=== PATIENT | male | born 1975 | race Hispanic/Latino ===

== ENCOUNTER 2017-12-29 09:00 | Emergency (ER) | payer OTHER ==
[~2017-12-29] VITALS: Ht 170.2 cm; Wt 106.6 kg
[2017-12-29] MEDS ORDERED: SILVER SULFADIAZINE 50GM CREAM TOP STA (09:23)
[2017-12-29] MEDS ORDERED: TETANUS/DIPHTHERIA TOX ADULT 0.5 ML SYR IM ONE (09:30)
[2017-12-29 10:24] VITALS: BP 113/74
== END 2017-12-29 10:35 | disposition home or self-care (01) ==
LOC: ER 09:00
DX: S70.311A Abrasion, right thigh, initial encounter (principal); W22.8XXA Striking against or struck by other objects, initial encounter; Y93.89 Activity, other specified; Y92.008 Other place in unspecified non-institutional (private) residence as the place of occurrence of the external cause
CPT/HCPCS: 90471; 90714; 99283

== ENCOUNTER 2018-05-18 12:32 | Observation (INO) | payer OTHER ==
[~2018-05-18] VITALS: Ht 170.2 cm; Wt 103.9 kg
[2018-05-18] MEDS ORDERED: SODIUM CHLORIDE 0.9% 1000ML 1,000 ML IV STA (12:44)
[2018-05-18] MEDS ORDERED: ALTEPLASE 50 MG/VIAL (29 MILLION IU) IV ONE (12:45)
[2018-05-18] MEDS ORDERED: INSULIN REGULAR, HUMAN 100 UNIT/1 ML 3ML VIAL IV ONE (12:45)
[2018-05-18 12:58] LABS: BASOPHILS % 0.3 % (0.0-1.0); EOSINOPHILS # (AUTO) 0.1 (0.0-0.4); EOSINOPHILS % 1.3 % (0.0-6.0); HEMATOCRIT 46.8 % (38.2-49.6); HEMOGLOBIN 16.6 g/dL (14.0-18.0); LYMPHOCYTES % 34.5 % (18.0-39.1); MEAN CORPUSCULAR HEMOGLOBIN 30.6 pg (28-32); MEAN CORPUSCULAR HGB CONC 35.5 g/dL (31-35); MEAN CORPUSCULAR VOLUME 86.3 fL (81-99); MONOCYTES # (AUTO) 0.7 (0.2-0.8); MONOCYTES % 8.4 % (4.4-11.3); NEUTROPHILS # (AUTO) 4.7 (2.1-6.9); NEUTROPHILS % 55.2 % (38.7-80.0); PLATELET COUNT 283 x10e3/uL (140-360); RED BLOOD COUNT 5.42 x10e6/uL (4.3-5.7); RED CELL DISTRIBUTION WIDTH 12.9 % (11.7-14.4)
--- NOTE | 2018-05-18 13:05 | Diagnostic Imaging Report ---
Exam: Head CT without contrast History: Stroke symptoms, dizziness, facial numbness Comparison studies: None Technique: Axial images were obtained from the skull base to the vertex. Coronal and sagittal images reconstructed from the axial data. Intravenous contrast: None Findings: Scalp: No abnormalities. Bones: No fractures, blastic or lytic lesions. Brain sulci: Appropriate for age. Ventricles: Normal in size and configuration. No hydrocephalus. Extra-axial spaces: No masses, no fluid collection. Parenchyma: No abnormal densities. No masses, acute hemorrhage, acute or chronic vascular insults. Sellar/suprasellar region: No abnormalities. Craniocervical junction: Patent foramen magnum. No Chiari one malformation. IMPRESSION: 1. No intracranial abnormalities. 2. Specifically, no mass, acute hemorrhage or acute cortical vascular insults. Signed by: Dr. Omega Simeon M.D. on 05/18/2018 1:02 PM
[2018-05-18 13:07] LABS: PROTHROMBIN TIME 12.4 seconds (11.9-14.5)
[2018-05-18 13:08] LABS: PARTIAL THROMBOPLASTIN TIME 26.7 seconds (23.8-35.5)
[2018-05-18 13:17] LABS: ALANINE AMINOTRANSFERASE 125 IU/L (0-55); ALBUMIN 4.1 g/dL (3.5-5.0); ALBUMIN/GLOBULIN RATIO 1.1 (0.8-2.0); ALKALINE PHOSPHATASE 104 IU/L (40-150); BLOOD UREA NITROGEN 13 mg/dL (7-26); BUN/CREATININE RATIO 13 (6-25); CALCIUM 9.7 mg/dL (8.4-10.2); CARBON DIOXIDE 25 mmol/L (22-29); CHLORIDE 98 mmol/L (98-107); CREATINE KINASE 107 IU/L (30-200); CREATININE, SERUM 1.01 mg/dL (0.72-1.25); EST GLOMERULAR FILTRATION RATE > 60 ML/MIN (60-); SODIUM 135 mmol/L (136-145)
[2018-05-18 13:19] LABS: GLUCOSE 462 mg/dL (74-118)
[2018-05-18] MEDS ORDERED: SODIUM CHLORIDE 0.45% 1,000 ML IV SCH (13:38)
[2018-05-18] MEDS ORDERED: ENALAPRILAT IV INJ 1.25 MG/ML VIAL IV PRN (13:45)
[2018-05-18] MEDS ORDERED: ONDANSETRON HCL INJ 2 MG/ML VIAL IV PRN (13:45)
[2018-05-18] MEDS ORDERED: DEXTROSE 50% SYRINGE 50 ML IV PRN (13:45)
[2018-05-18] MEDS ORDERED: ACETAMINOPHEN 325 MG TAB PO PRN (13:45)
[2018-05-18] MEDS ORDERED: ZOLPIDEM TARTRATE 5 MG TAB PO PRN (13:45)
[2018-05-18] MEDS ORDERED: IBUPROFEN 200 MG TAB PO PRN (13:45)
[2018-05-18 13:53] LABS: CLARITY,URINE CLEAR (CLEAR); COLOR,URINE YELLOW (YELLOW); KETONES,URINE NEGATIVE (NEGATIVE); LEUKOCYTE ESTERASE ,URINE NEGATIVE (NEGATIVE); NITRITE,URINE NEGATIVE (NEGATIVE); PROTEIN,URINE DIPSTICK NEGATIVE (NEGATIVE)
[2018-05-18 13:54] LABS: AMPHETAMINES SCREEN,URINE NEGATIVE (NEGATIVE); BENZODIAZEPINES SCREEN,URINE NEGATIVE (NEGATIVE); BILIRUBIN,URINE NEGATIVE (NEGATIVE); PHENCYCLIDINE SCREEN,URINE NEGATIVE (NEGATIVE); URINE UROBILINOGEN 0.2 mg/dL (0.2 - 1)
[2018-05-18 13:59] LABS: BACTERIA,URINE FEW /HPF; EPITHELIAL CELLS,URINE FEW /LPF; RBC,URINE 0-5 /HPF (0-5); WBC,URINE (MAN) 0-5 /HPF (0-5)
[2018-05-18 14:20] VITALS: BP 128/81
[2018-05-18] MEDS ORDERED: IBUPROFEN 400 MG TAB PO PRN (16:00)
--- NOTE | 2018-05-18 16:08 | Diagnostic Imaging Report ---
Exam: Brain MRI without IV contrast History: Dizziness, facial numbness Comparison studies: Head CT of the same date, 05/18/2018 Technique: Sagittal and axial T2 FS, axial DWI, axial T2*GRE, axial T1 FLAIR and axial coronal T2 FLAIR. Intravenous contrast: None Findings: Scalp: Normal in signal. No masses. Bone marrow: Normal in signal intensity. Brain sulci: Appropriate for age. Ventricles: Normal in size. No hydrocephalus. Extra axial spaces: No mass, no fluid collection. Parenchyma: No mass, hemorrhage or acute ischemia. A single punctate T2 FLAIR hyperintense focus along the right precentral subcortical white matter is nonspecific but may reflect minimal chronic microvascular ischemic changes or focal nonspecific gliosis. This finding is beyond resolution of CT. Suprasellar region: No abnormalities. Craniocervical junction: Patent foramen magnum. No Chiari malformation. Vessels: Normal flow-voids in the arteries and sinuses. IMPRESSION: 1. No acute ischemia or other acute intracranial abnormalities. 2. Single nonspecific right precentral punctate focal signal abnormality, possibly minimal chronic microvascular ischemic changes other nonspecific focal gliosis. Signed by: Dr. Omega Simeon M.D. on 05/18/2018 4:05 PM
[2018-05-18 16:12] VITALS: BP 128/81
[2018-05-18 16:30] VITALS: BP 123/79
[2018-05-18] MEDS ORDERED: CLONIDINE HCL 0.2 MG TAB PO PRN (16:45)
[2018-05-18] MEDS ORDERED: ASPIRIN 81 MG CHEW TAB PO ONE (16:45)
[2018-05-18] MEDS: INSULIN REGULAR, HUMAN 100 UNIT/1 ML 3ML VIAL SQ SCH ×2 (17:22→22:08)
[2018-05-18] MEDS: INSULIN DETEMIR 100 UNIT/ML PEN SQ SCH (17:22)
[2018-05-18 18:14] LABS: FERRITIN 387.13 ng/mL (21.81-274.66)
--- NOTE | 2018-05-18 18:16 | History and Physical ---
This is a 42-year-old male with past medical history according to him only positive for borderline diabetes. He apparently started having double vision, feeling extremely weak and dizzy. He came to the emergency room. He was found to have very high blood sugar at 462. He was admitted to the hospital. CT of the head came back negative for stroke. REVIEW OF SYSTEMS CARDIOVASCULAR: No chest pain or palpitations. RESPIRATORY: No shortness of breath. No cough. GASTROINTESTINAL: No nausea, vomiting or diarrhea. GENITOURINARY: He has frequency but no dysuria. NEUROLOGIC: He has dizziness and double vision. No weakness of the arms or legs. PAST MEDICAL HISTORY: Diabetes mellitus, type 2, diet controlled. SOCIAL HISTORY: He does not smoke. He does not drink alcohol. He does not do recreational drugs. PHYSICAL EXAMINATION HEART: Regular rhythm. Normal S1, S2 sounds. LUNGS: Clear bilaterally. ABDOMEN: Soft. EXTREMITIES: No evidence of cyanosis, edema or trauma. NEUROLOGIC: Alert and oriented x3. No motor or sensory deficits. Cranial nerves within normal limits. LABS: On the BMP, sodium 135, potassium 4.0, chloride 98. CO2 25. BUN 13, creatinine 1.01. Glucose 462. CBC showed white blood count 8.58, hemoglobin 16.6, hematocrit 46.8, platelet count 250,000. PT 12.4, INR 1.00, PTT 26.7. AST 63, ALT 125, total bilirubin 1.1, alkaline phosphatase 104. CT of head showed no significant evidence of any stroke or bleed or anything like that. FINAL IMPRESSION 1. Slurred speech. 2. Uncontrolled diabetes mellitus, type 2, with polyneuropathy. 3. Elevated liver function tests. PLAN OF TREATMENT: We are going to start monitoring blood sugar a.c. and nightly. We are going to start Levemir 20 units at bedtime and 5 units before each meal. Diabetic diet. Diabetic teaching. We are going to start him on Lyrica 50 mg q.8 h. for the polyneuropathy. Neurology consult with Dr. Daniel. Carotid Doppler and echocardiogram have been ordered also. We are going to do a workup for the elevated LFTs including liver ultrasound, hepatitis profile, antinuclear antibodies, ceruloplasmin level, iron and ferritin. Job#: [id number]
[2018-05-18 19:20] VITALS: BP 121/74
[2018-05-18 19:56] VITALS: BP 121/74
[2018-05-18] MEDS: PREGABALIN 50 MG CAP PO SCH (22:08)
[2018-05-19] VITALS (9 sets, daily range): BP systolic 109–130; BP diastolic 60–82
--- NOTE | 2018-05-19 03:39 | History and Physical ---
ADDENDUM TO HISTORY AND PHYSICAL EKG was done, normal sinus rhythm, no evidence of any ST-segment elevation or depression. Carotid Doppler did not show any lesion. Preliminary report did not show areas of any carotid stenosis. Echocardiogram showed good ejection fraction of 60%-65% with no pericardial effusion. No evidence of any severe valvular abnormality either. CT of head was negative for stroke. So, most likely, symptoms are related to hyperosmolar state due to very high blood sugar. We are going to start lisinopril 10 mg daily for protection of kidney stress from the diabetic nephropathy and plus the blood pressure in the ER was very high. We are going to 0.2 mg p.o. twice a day as needed for hypertension, also 325 mg have been given to the patient. Patient cannot have lipid-lowering agents because of elevated LFTs. The workup for elevated LFTs including liver ultrasound, iron, TIBC, ferritin, ceruloplasmin level, antinuclear antibodies, and antimitochondrial antibodies, and hepatitis profile. We are going to repeat CMP tomorrow. We are going to also consult for endocrinology because of uncontrolled blood sugar and also, hemoglobin A1c has been ordered. Diabetic diet, 1800-calorie ADA diet, and also, Dr. Daniel, neurology will see the patient also because of episode of blurry vision, dysarthria , which are resolved. Job#: [id number] CQ
[2018-05-19 06:24] LABS: ALANINE AMINOTRANSFERASE 97 IU/L (0-55); ALBUMIN 3.5 g/dL (3.5-5.0); ALBUMIN/GLOBULIN RATIO 1.2 (0.8-2.0); ALKALINE PHOSPHATASE 73 IU/L (40-150); ANION GAP 11.6 mmol/L (8-16); BLOOD UREA NITROGEN 12 mg/dL (7-26); BUN/CREATININE RATIO 16 (6-25); CALCIUM 8.9 mg/dL (8.4-10.2); CARBON DIOXIDE 25 mmol/L (22-29); CHLORIDE 104 mmol/L (98-107); CREATININE, SERUM 0.73 mg/dL (0.72-1.25); EST GLOMERULAR FILTRATION RATE > 60 ML/MIN (60-); GLUCOSE 222 mg/dL (74-118); POTASSIUM 3.6 mmol/L (3.5-5.1); SODIUM 137 mmol/L (136-145)
[2018-05-19 06:53] LABS: CREATINE KINASE 80 IU/L (30-200)
[2018-05-19] MEDS: PREGABALIN 50 MG CAP PO SCH ×3 (08:39→20:50)
[2018-05-19] MEDS: LISINOPRIL 10 MG TAB PO SCH (08:39)
[2018-05-19] MEDS: ASPIRIN 325 MG TAB PO SCH (08:39)
[2018-05-19] MEDS: INSULIN DETEMIR 100 UNIT/ML PEN SQ SCH ×2 (08:41→16:30)
[2018-05-19] MEDS: INSULIN REGULAR, HUMAN 100 UNIT/1 ML 3ML VIAL SQ SCH ×2 (08:41→12:21)
[2018-05-19 10:43] LABS: CHOL/HDL RATIO 5.4 (3.9-4.7)
[2018-05-19 13:20] LABS: FREE T4 (FREE THYROXINE) 1.08 ng/dL (0.9-1.8); THYROID STIMULATING HORMONE 0.708 uIU/mL (0.350-4.940)
--- NOTE | 2018-05-19 14:23 | Progress Note ---
DATE: INTERNAL MEDICINE PROGRESS NOTE SUBJECTIVE: Patient is doing well. No significant complaint. PHYSICAL EXAM: VITAL SIGNS: Blood pressure 127/73. Temperature is 96.3. Heart rate 86 per minute. Respiratory rate 18 per minute. Oxygen 96%. HEART: Shows regular rhythm. Normal S1 and S2 sounds. LUNGS: Clear bilaterally. ABDOMEN: Soft. EXTREMITIES: Show no evidence of cyanosis, edema or trauma. BLOOD WORK: We have a BMP with a sodium 137, potassium 3.6, chloride 104, CO2 25, BUN 12, creatinine 0.73, glucose 222. On the CBC: White blood count 8.58, hemoglobin 16.6, hematocrit 46.8, platelet count 283,000. PT 12.4, INR 1.00, PTT 26.7. AST 45, ALT 97, total bilirubin is 1.1, alkaline phosphatase of 73. FINAL IMPRESSION: 1. Episode of dizziness most likely related to the hyperglycemia versus transient ischemic attack. 2. Uncontrolled diabetes mellitus type 2 with diabetic neuropathy. 3. Essential hypertension. 4. Obesity. PLAN OF TREATMENT: We are going to continue with the current insulin regimen. He is on Levemir 30 units twice a day and Humalog 16 units before meals. Continue monitoring blood sugar a.c. and nightly. Continue diabetic teaching. Aspirin 325 mg daily. Lovenox 40 mg subcutaneous daily for DVT prophylaxis. Lyrica 50 mg 3 times a day because of the diabetic neuropathy. Ibuprofen 400 mg q.6 h. as needed. Ambien 5 mg at night p.r.n. for sleep. Clonidine 0.2 mg twice a day as needed for hypertension. Pepcid 20 mg p.o. twice a day. Dr. Gaitan is on the case for endocrinology, Dr. Tatiana Daniel for neurology. Echocardiogram did not show any significant abnormalities according to the preliminary report as well as the carotid Doppler showed no significant carotid stenosis according to the flight technician preliminary report. Tomorrow Dr. Drummond will resume the care until discharge. Job#: [id number] EV
[2018-05-19] MEDS: INSULIN LISPRO 100 UNIT/1 ML 3ML VIAL SQ SCH ×3 (16:30→20:51)
[2018-05-19] MEDS: FAMOTIDINE 20 MG TAB PO SCH (16:30)
[2018-05-19] MEDS ORDERED: ENOXAPARIN SOD INJ 40 MG/0.4 ML SYR SC SCH (17:00)
--- NOTE | 2018-05-19 19:02 | Consultation ---
DATE OF CONSULTATION: May 18, 2018 ENDOCRINE CONSULTATION PATIENT OF: Dr. Barnard. Thank you very much for referring this patient. HISTORY OF PRESENT ILLNESS: This is a 42-year-old gentleman who is referred to me for evaluation of diabetes mellitus. Patient tells me that he was seen told that he has prediabetes about 3 years back and has been taking metformin off and on. He has been having a problem with the polyuria, polydipsia, and weight loss. He came to the emergency room with history of blurred vision and some weakness. Patient is being admitted in the hospital for further evaluation. Patient also was found to be hypertensive. He does not have any family history of diabetes according to the patient. At the time of admission, his blood sugar was 462 and anion gap was around 16. His hemoglobin A1c is 13.1. PHYSICAL EXAMINATION GENERAL: Today, the patient is alert, awake, a little bit apprehensive. He is moderately overweight. VITAL SIGNS: His heart rate is around 78, blood pressure is 132/82 mmHg. HEENT: Essentially unremarkable. Thyroid is palpable. Clinically, he is near euthyroid. CHEST: Bilateral vesicular breathing. He has mild bronchospasm. CARDIAC: There are 1st and 2nd heart sounds. There is no 3rd or 4th heart sound. Ejection sound grade 2/6. EXTREMITIES: Patient has evidence of diabetic sensory neuropathy in both lower extremities. CLINICAL IMPRESSION 1. Diabetes mellitus type 2, uncontrolled with complications. 2. Rule out cerebrovascular accident. 3. Rule out transient ischemic attack. 4. Hypertension. PLAN: The plan at this time is to start him on combination of Humalog and Lantus insulin. Patient needs extensive diabetic and dietary education. We will also do a lipid profile. Thanks again for referring this patient. I will be following this patient with you. Job#: [id number] MILI
[2018-05-20] VITALS (7 sets, daily range): BP systolic 103–118; BP diastolic 56–77
[2018-05-20] MEDS: INSULIN LISPRO 100 UNIT/1 ML 3ML VIAL SQ SCH ×4 (08:06→12:29)
[2018-05-20] MEDS: FAMOTIDINE 20 MG TAB PO SCH (08:06)
[2018-05-20] MEDS: INSULIN DETEMIR 100 UNIT/ML PEN SQ SCH (09:21)
[2018-05-20] MEDS: ASPIRIN 325 MG TAB PO SCH (09:21)
[2018-05-20] MEDS: LISINOPRIL 10 MG TAB PO SCH (09:21)
[2018-05-20] MEDS: PREGABALIN 50 MG CAP PO SCH (09:21)
--- NOTE | 2018-05-20 11:00 | Consultation ---
DATE OF CONSULTATION: May 19, 2018 NEUROLOGY CONSULT NOTE HISTORY OF PRESENT ILLNESS: Mr. Nye is a 42-year-old right hand dominant man with past medical history significant for prediabetes, admitted to [facility] on May 18, 2018 with multiple symptoms. At approximately 10:30 or 11 a.m. on the day of admission, the patient experienced the sudden onset of impairment of depth perception, numbness and tingling over the whole face, dysarthria, and mild expressive aphasia. Concerned regarding his symptoms, Mr. Nye called his and spoked to her for approximately 10 minutes. Both agree the patient should get something to eat to see if this would improve his symptoms. However, there was no improvement of his symptoms. Shortly after eating, in addition to the above symptoms, the patient noted dizziness which he further describes as a lightheaded sensation and mild impairment of gait with poor balance. Mr. Nye notified his of his persistent and worsening symptoms. She drove to his place of employment, then brought him to the emergency center at [facility] for further evaluation. Upon arrival in the emergency center, the patient was afebrile with a blood pressure of 150/97 mmHg and a pulse of 90 beats per minute. His neurological examination was documented as being nonfocal. A CT of the brain without contrast was performed and did not show evidence of recent large territorial ischemia or hemorrhage. While in the emergency center, routine blood work revealed a serum glucose of 462. Mr. Agudelo was admitted to [facility] under observation status for further evaluation and treatment of hyperglycemia and possible transient ischemic attack. Mr. Agudelo reports the symptoms described above gradually resolved over a period of several hours. At approximately 9 p.m., the patient was asymptomatic with the exception of a mild diffuse headache. REVIEW OF SYSTEMS: Visual impairment, dysarthria, mild expressive aphasia, numbness affecting the whole face, impairment of balance and gait, mild headache, dizziness further described as lightheadedness. Otherwise, the 12 point review of systems is negative. PAST MEDICAL HISTORY: Prediabetes diagnosed approximately 3 years ago, fatty liver. PAST SURGICAL HISTORY: Appendectomy, cholecystectomy, left rotator cuff repair. PAST HOSPITALIZATIONS: Surgeries/procedures as listed. FAMILY HISTORY: The patient's paternal and maternal grandparents are . Their medical histories are unknown. Mr. Nye's father is alive, but his medical history is unknown. Mr. Nye is estranged from his father and several relatives on his father's side of the family. The patient's mother is alive. She has gastroesophageal reflux disease and headaches. One brother is alive, but overweight. A second brother is alive. His medical history is unknown. Mr. Nye has 2 other brothers, but he is estranged from them at present. Mr. Nye has 4 children, 3 boys and 1 girl. All are alive. His boys are healthy. His daughter has alopecia. SOCIAL HISTORY: Patient is . He has his GED. 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 The patient endorses a history of tobacco use. He previously smoked 1/2 pack per day for approximately 20 years. He quit smoking cigarettes approximately one year ago. Mr. Nye endorses occasional alcohol use. He does not report current or prior recreational drug use. HOME MEDICATIONS: None. ALLERGIES: NO KNOWN DRUG ALLERGIES. NO KNOWN FOOD ALLERGIES. NO KNOWN ALLERGIES TO LATEX. NO KNOWN ALLERGIES TO IODINE OR OTHER CONTRAST MATERIALS. PHYSICAL EXAMINATION VITAL SIGNS: Height 67 inches, weight 230 pounds, BMI 36.0 kg per meter squared. Blood pressure 130/82 mmHg, pulse 72 beats per minute, respiratory rate 18 breaths per minute, oxygen saturation 97% on room air. GENERAL: Patient is awake and alert, does not appear distressed. Obese. HEENT: Normocephalic, atraumatic. Pupils are equal, round, and reactive to light. Moist mucous membranes. NECK: Supple. No appreciable thyromegaly. No appreciable carotid bruits. CARDIOVASCULAR: S1 and S2, regular rate and rhythm. No murmurs, rubs, or gallops. RESPIRATORY: Clear to auscultation bilaterally. No wheezes, rhonchi, or rales. EXTREMITIES: The skin is wary and dry. No clubbing, cyanosis, or edema. The posterior tibial and dorsalis pedis pulses are 2+ and symmetric. SKIN: No rashes or lesions NEUROLOGIC MEMORY/ATTENTION: The patient is awake and alert, oriented to person, place, time, and situation. Cranial Nerves: Cranial nerve I - not tested. Cranial nerve II, III, IV, and - pupils are equal and round, react briskly to light (from 4 mm to 2 mm). Extraocular movements intact. No nystagmus. Cranial nerve V - sensation to light touch and pinprick is intact in the bilateral V1 through V3 distributions. Strength of the temporalis and masseter muscles is within normal limits. Cranial nerve VII - the face is symmetric as are all facial movements. Strength is within normal limits. Cranial nerve VIII - hearing is intact to finger rub bilaterally. Cranial nerve IX, X - the soft palate elevates equally and symmetrically. Cranial nerve XI - normal strength of the sternocleidomastoid and trapezius muscles. Cranial nerve XII - the tongue protrudes midline and moves symmetrically from side to side. STRENGTH: Bulk is normal. Strength is 5/5 in the bilateral deltoids, biceps, triceps, wrist flexors and extensors, finger flexors and extensors, intrinsic hand muscles, hip flexors, knee flexors and extensors, ankle dorsiflexion and plantar flexion, and intrinsic foot muscles. Tone is normal. DTRs: Deep tendon reflexes are 2+ and symmetric at the triceps, biceps, brachioradialis, patellas, and Achilles. Plantar responses are flexor bilaterally. SENSATION: Sensation is intact to light touch and pinprick in both arms and both legs. CEREBELLAR: Rlunon-vkcb-dvnbdk and heel-boyle movements are intact without dysmetria or other impairment. Rapid alternating movements are intact. GAIT: Deferred. SPEECH: Spontaneous speech is normal without appreciable dysarthria or aphasia. Repetition is intact. INVOLUNTARY MOVEMENTS: None. PRONATOR Drift: None. LABORATORY DATA: Sodium 137, potassium 3.6, chloride 104, dioxide 25, anion gap 11.6, BUN 12, creatinine 0.73, estimated GFR greater than 60, BUN to creatinine ratio 16, glucose 222, calcium 8.9, total bilirubin 1.1, AST 45, ALT 97, alkaline phosphatase 73, total protein 6.4, albumin 3.5, globulin 2.9, albumin to globulin ratio 1.2. Creatinine kinase 107, 80; CK-MB 0.60, 0.50; troponin I 0.001, less than 0.001. Hemoglobin A1c 13.1. Iron 70, TIBC 372, percent saturation 19, transferrin 266, ferritin 387.13. The CBC with differential and platelets reveals a white blood cell count of 8.58 with a normal differential. PT 12.4, INR 1.00, PTT 26.7. Urinalysis is significant for 3+ glucose. Urine drug screen is negative. JOLEEN screen and antimitochondrial antibodies are pending. Hepatitis panel is pending. DIAGNOSTIC STUDIES 1. EKG, 05/18/2018: Normal sinus rhythm at 86 beats per minute. 2. CT of the brain without contrast on 05/18/2018: On my review, there is no evidence of recent large territorial ischemia, hemorrhage, mass, or mass effect. Cerebral volumes are normal for age. 3. Echocardiogram, 05/18/2018: Ejection fraction 60 to 65%. Right ventricular enlargement. 4. Bilateral carotid artery ultrasound with Doppler on 05/18/2018: There is no evidence of hemodynamically significant atherosclerosis. Flow is antegrade in the bilateral vertebral arteries. 5. MRI brain without contrast omn 05/18/2018: On my review, there is no evidence of recent large territorial ischemia, hemorrhage, mass, or mass effect. There is a single foci of T2 4/FLAIR hyperintensity along the right precentral subcortical white matter probably secondary to chronic small vessel ischemic disease. ASSESSMENT AND PLAN: Mr. Nye is a 42-year-old right hand dominant man with past medical history significant for prediabetes diagnosed approximately 3 years ago, admitted with multiple symptoms in the setting of a serum glucose greater than 400. At present, the patient's neurological examination is nonfocal. His laboratory data and other diagnostic studies have been reviewed and are documented above. Most of the patient's symptoms may be attributed to hyperglycemia. However, his reported language deficits (dysarthria and mild expressive aphasia) cannot be attributed to hyperglycemia and probably represent a transient ischemic attack. RECOMMENDATIONS 1. Lipid panel will be ordered. 2. Aspirin 325 mg by mouth daily for stroke prophylaxis will be continued. 3. Blood pressures are currently at goal. Continue with current antihypertensive medications. Continue to monitor her vital signs per unit protocol. 4. Followup the results of the lipid panel. However, due to the patient's elevated liver transaminases, it may not be possible to prescribe cholesterol lowering medication. 5. Tight glycemic control is recommended during this hospitalization. Defer adjustments of the patient's hypoglycemic medications to the primary service. 6. The patient has no neurological deficits. Therefore, evaluations by speech and physical therapies will be deferred. 7. GI prophylaxis with Pepcid 20 mg by mouth twice daily before meals. DVT prophylaxis with Lovenox 40 mg subcutaneously daily. 8. Defer treatment of the remaining medical comorbidities to the primary and other services following the patient. Thank you for this consultation. I will continue to follow this patient while he remains in the hospital. TIME SPENT: 70 minutes. Job#: [id number] CASSIU KORTNEY
[2018-05-20 12:07] LABS: BASOPHILS # (AUTO) 0.1 (0.0-0.1); BASOPHILS % 0.6 % (0.0-1.0); EOSINOPHILS # (AUTO) 0.2 (0.0-0.4); HEMATOCRIT 47.5 % (38.2-49.6); HEMOGLOBIN 16.5 g/dL (14.0-18.0); LYMPHOCYTES # (AUTO) 3.3 (1.0-3.2); LYMPHOCYTES % 41.6 % (18.0-39.1); MEAN CORPUSCULAR HEMOGLOBIN 30.6 pg (28-32); MEAN CORPUSCULAR HGB CONC 34.7 g/dL (31-35); MEAN CORPUSCULAR VOLUME 88.1 fL (81-99); MONOCYTES # (AUTO) 0.8 (0.2-0.8); MONOCYTES % 9.6 % (4.4-11.3); NEUTROPHILS # (AUTO) 3.7 (2.1-6.9); NEUTROPHILS % 45.9 % (38.7-80.0); PLATELET COUNT 286 x10e3/uL (140-360); RED BLOOD COUNT 5.39 x10e6/uL (4.3-5.7)
[2018-05-20 12:28] LABS: ALANINE AMINOTRANSFERASE 151 IU/L (0-55); ALBUMIN/GLOBULIN RATIO 1.1 (0.8-2.0); ALKALINE PHOSPHATASE 74 IU/L (40-150); ANION GAP 12.2 mmol/L (8-16); BLOOD UREA NITROGEN 13 mg/dL (7-26); BUN/CREATININE RATIO 16 (6-25); CALCIUM 9.8 mg/dL (8.4-10.2); CARBON DIOXIDE 27 mmol/L (22-29); CHLORIDE 104 mmol/L (98-107); CREATININE, SERUM 0.81 mg/dL (0.72-1.25); EST GLOMERULAR FILTRATION RATE > 60 ML/MIN (60-); GLUCOSE 177 mg/dL (74-118); POTASSIUM 4.2 mmol/L (3.5-5.1); SODIUM 139 mmol/L (136-145)
--- NOTE | 2018-05-20 12:37 | Discharge Summary ---
ADMITTING DIAGNOSES 1. Transient ischemic attack. 2. Hyperglycemia secondary to uncontrolled, type-2 diabetes mellitus with polyneuropathy. 3. Elevated hepatic transaminases, likely secondary to fatty liver disease. 4. Obesity. Body mass index 35. 5. Acute renal failure. DISCHARGE DIAGNOSES 1. Dysarthria secondary to hyperglycemia from uncontrolled, type-2 diabetes mellitus, resolved. 2. Type-2 diabetes mellitus with polyneuropathy. 3. Elevated hepatic transaminases secondary to fatty liver disease. 4. Obesity. Body mass index 35. 5. Hypertensive heart disease. 6. Acute renal failure, resolved. 7. Dyslipidemia. HOSPITAL COURSE: This is a 42-year-old male who was initially admitted to [facility] with a diagnosis of slurred speech secondary to extreme hyperglycemia from uncontrolled type-2 diabetes mellitus. During this hospitalization, the patient was also diagnosed with diabetic polyneuropathy. Thus, he was started on Lyrica 50 mg 3 times a day. During this hospitalization, the patient was seen by endocrinology, Dr. Gaitan, who ordered Levemir insulin 30 units subcutaneously twice a day and Humalog insulin 16 units 3 times a day with meals. The insulin did help control the patient's glucose levels. The patient's acute renal failure resolved with intravenous fluids. On admission, the patient's BUN and creatinine were 13 and 1.01 respectively. Prior to discharge, the patient's BUN and creatinine were 12 and 0.73 respectively. During this hospitalization, the patient was found to have a hemoglobin A1c of 13.1%. On admission, the patient's AST and ALT were 63 and 125 respectively. Prior to being discharged, the patient's AST and ALT were 45 and 97 respectively. During this hospitalization, the patient was found to have triglyceride level of 212 mg/dL and LDL cholesterol of 109 mg/dL. During this hospital stay, the patient was seen by neurology, namely Dr. Tatiana Daniel, because of possible transient ischemic attack. The patient underwent an MRI of the brain that did not reveal any acute intracranial abnormality. The patient also underwent a carotid Doppler ultrasound during this hospitalization, which did not reveal any critical carotid artery stenosis. The patient's hospitalization was unremarkable. His condition on discharge was stable. DISCHARGE MEDICATIONS 1. Levemir insulin 30 units subcutaneous twice a day. 2. Humalog insulin 16 units subcutaneous t.i.d. with meals. 3. Atorvastatin 20 mg nightly. 4. Lisinopril 10 mg daily. 5. Glucometer. FOLLOWUP INSTRUCTIONS: The patient was instructed to follow up with his primary care physician, namely Dr. Emery Malloy, within 1 to 2 weeks. Absolute alcohol abstinence was recommended to the patient, but the patient states he does not drink alcohol. The patient was informed that his elevated hepatic transaminases were most likely secondary to his fatty liver disease. I informed the patient that he can return to his work without restrictions on Sunday, May 27, 2018. DALLAS MADDOX MD Job#: [id number] cc: Teresa TEJADA MD MTDD
[2018-05-20] MEDS ORDERED: LISINOPRIL10 MG PO (12:43)
[2018-05-20] MEDS ORDERED: ATORVASTATIN CA10 MG PO (12:43)
--- NOTE | 2018-05-20 13:03 | Diagnostic Imaging Report ---
EXAM: Liver Ultrasound INDICATION: Hyperglycemia. Elevated liver function test \S\Elevated LFT \S\[id number] \S\1400 \S\Y COMPARISON: None. TECHNIQUE: Transverse and longitudinal images of the liver were obtained. FINDINGS: Liver: Size: 16.3 cm in the right midclavicular line, prominent Appearance: Normal echogenicity, smooth contour Mass: No focal masses Gallbladder: Not seen. The pancreas is not well seen. Right kidney length 11.9 cm. Main portal vein diameter 0.9 cm with normal flow. The abdominal aorta and inferior vena cava are unremarkable. Bile Ducts: Intrahepatic Ducts: No dilatation. Common bile duct 0.3 cm Extrahepatic Ducts: Limited Free Fluid: No ascites or pleural effusion IMPRESSION: Prominent liver measuring 16.3 cm. Signed by: Dr. Declan Steve M.D. on 05/20/2018 6:53 PM
[2018-05-20] MEDS ORDERED: HUMALOG100 UNIT/1 SQ (13:55)
[2018-05-20] MEDS ORDERED: LANTUS 3ML100 UNITS/ SQ (13:56)
[2018-05-20] MEDS ORDERED: INSULIN LISPRO 100 UNIT/1 ML 3ML VIAL SQ SCH (16:30)
[2018-05-20] MEDS ORDERED: INSULIN DETEMIR 100 UNIT/ML PEN SQ SCH (17:00)
== END 2018-05-20 14:26 | disposition home or self-care (01) ==
LOC: ER 12:41 → ERHOLD 13:31 → IMCU 14:17
DX: E11.65 Type 2 diabetes mellitus with hyperglycemia (principal); E11.42 Type 2 diabetes mellitus with diabetic polyneuropathy; R79.89 Other specified abnormal findings of blood chemistry; K76.0 Fatty (change of) liver, not elsewhere classified; E11.00 Type 2 diabetes mellitus with hyperosmolarity without nonketotic hyperglycemic-hyperosmolar coma (NKHHC); I10 Essential (primary) hypertension; E11.21 Type 2 diabetes mellitus with diabetic nephropathy; E66.9 Obesity, unspecified; E78.1 Pure hyperglyceridemia; R47.1 Dysarthria and anarthria; Z68.35 Body mass index [BMI] 35.0-35.9, adult; N17.9 Acute kidney failure, unspecified; I11.0 Hypertensive heart disease with heart failure; E78.5 Hyperlipidemia, unspecified
CPT/HCPCS: 36415 ×3; 70450; 70551; 76705; 80053 ×3; 80061; 80307; 81001; 82390; 82550 ×2; 82553 ×2; 82728; 82948 ×3; 83036; 83540; 84439; 84443; 84466; 84484 ×2; 85025 ×2; 85610; 85730; 86039; 86255; 93005; 93306; 93880; 99284; G0378 ×3; J1650; J7030